=== PATIENT | male | born 1985 | race Caucasian/White ===

== ENCOUNTER 2018-09-02 20:54 | Emergency (ER) | payer SELFPAY ==
[~2018-09-02] VITALS: Ht 180.3 cm; Wt 82.0 kg
[~2018-09-02 20:54] MED LIST: DILANTIN; KEPPRA
[2018-09-02] MEDS ORDERED: TETANUS, DIPHTHERIA, PERTUSSIS VAC/PF 0.5ML (>7YR OLD) IM ONE (21:45)
[2018-09-02 23:11] LABS: BASOPHILS % 0.6 % (0.0-2.0); EOSINOPHILS % 0.9 % (0.0-5.0); HEMATOCRIT. 46.6 % (42.0-52.0); HEMOGLOBIN. 15.8 g/dL (14.0-18.0); LYMPHOCYTES % 42.4 % (20.0-50.0); MEAN CORPUSCULAR HEMOGLOBIN 32.6 pg (28.0-32.0); MEAN PLATELET VOLUME 7.9 fl (7.4-10.4); MONOCYTES % 5.9 % (2.0-8.0); NEUTROPHILS % 50.2 % (40.0-76.0); PLATELET 279 x1000/uL (130-400); RED BLOOD CELL COUNT 4.85 mill/uL (4.7-6.1); RED CELL DISTRIBUTION WIDTH 13.2 % (11.6-14.6)
[2018-09-02 23:18] LABS: CHLORIDE 105 mEq/L (98-107)
[2018-09-02 23:27] LABS: ETHANOL BLOOD 214 mg/dL
[2018-09-02 23:40] LABS: *AMPHETAMINES SCREEN URINE NEGATIVE (NEGATIVE)
[2018-09-02 23:41] LABS: *BARBITURATES SCREEN URINE NEGATIVE (NEGATIVE); *BENZODIAZEPINES SCREEN URINE NEGATIVE (NEGATIVE); *COCAINE SCREEN URINE NEGATIVE (NEGATIVE); METHADONE URINE SCREEN NEGATIVE (NEGATIVE); OPIATES URINE SCREEN NEGATIVE (NEGATIVE); PHENCYCLIDINE URINE SCREEN NEGATIVE (NEGATIVE)
[2018-09-02 23:42] LABS: CANNABINOID URINE SCREEN NEGATIVE (NEGATIVE)
[2018-09-03 03:08] VITALS: BP 118/58
== END 2018-09-03 03:10 | disposition home or self-care (01) ==
LOC: ER 20:54
DX: S09.8XXA Other specified injuries of head, initial encounter (principal); S01.311A Laceration without foreign body of right ear, initial encounter; X58.XXXA Exposure to other specified factors, initial encounter; Y93.89 Activity, other specified; Y92.89 Other specified places as the place of occurrence of the external cause; Y99.8 Other external cause status
CPT/HCPCS: 12011; 36415; 70450; 72125; 80053; 80305; 85025; 90471; 90715; 99284; G0482

== ENCOUNTER 2018-11-29 05:00 | Emergency (ER) | payer SELFPAY ==
[~2018-11-29] VITALS: Ht 172.7 cm; Wt 82.0 kg
[2018-11-29 05:50] VITALS: BP 119/79
== END 2018-11-29 06:05 | disposition left against medical advice (07) ==
LOC: ER 05:00
DX: Z53.21 Procedure and treatment not carried out due to patient leaving prior to being seen by health care provider (principal)